=== PATIENT | male | born 1985 | race Caucasian/White ===

== ENCOUNTER → 2017-12-24 06:39 | Outpatient (CLI) | payer OTHER, SELFPAY ==
--- NOTE | 2017-12-24 | DI.MRI.S_ITS ---
PROCEDURE: MR LUMBAR SPINE WO CON INDICATIONS: Low back pain TECHNIQUE: Noncontrast sagittal T1 spin echo and T2 fast echo, sagittal STIR, axial T1 and T2 fast spin echo through the lumbar spine. In cases with scoliosis, additional coronal T2 fast spin echo may be performed. COMPARISON: None. FINDINGS: Image quality: Excellent. Alignment and Curvature: There is normal bony alignment. Bone Marrow: Schmorl's node involving the superior endplate of L4 Marrow is of normal overall signal. No acute vertebral body compression fractures. Spinal Cord: Conus medullaris terminates at the L1 level. Visualized cord demonstrates normal signal and size. Paraspinous Soft Tissues: No paravertebral masses. L1-L2: Normal appearance. L2-L3: Normal appearance. L3-L4: Disc degeneration and height loss however no canal or foraminal stenosis L4-L5: Facet degeneration. No canal or foraminal stenosis L5-S1: Facet degeneration no canal or foraminal stenosis. IMPRESSION: Mild degenerative changes as detailed above. However no canal or foraminal stenosis. Dictated by: Cheng Newton M.D. on 12/24/2017 at 8:34 Approved by: Cheng Newton M.D. on 12/24/2017 at 8:41
== END ==
PROVIDERS: Visit Provider Radiology Diagnostic Radiology
DX: M54.5 Low back pain (principal); M51.36 Other intervertebral disc degeneration, lumbar region
CPT/HCPCS: 72148